=== PATIENT | male | born 1970 | race Caucasian/White ===

== ENCOUNTER 2020-11-27 04:11 | Observation (INO) | payer MEDICAID, OTHER ==
[~2020-11-27] VITALS: Ht 188 cm; Wt 121.5 kg
--- NOTE | 2020-11-27 04:18 | NUR ---
BIB [facility]-PT HAS CHRONIC COUGH, BUT EARLIER THIS MORNING DURING COUGHING HE FELT A SNAP AND HAD INCREASED PAIN. BEHAVIORAL HEALTH TECH 18G PIV INSERTED, 200 MCG FENTANYL ADMINSTERED. ASSUMED CARE OF PT. HOOKED TO MONITORS, NADN. PRECIOUS MACIAS CURRENTLY BEDSIDE ASSESSING PT
--- NOTE | 2020-11-27 04:29 | NUR ---
PT UPDATED ON POC, PT PROVIDED URINE SAMPLE, COLLECTED AND SENT TO LAB. NADN, CALL LIGHT W/ IN REACH
--- NOTE | 2020-11-27 04:36 | NUR ---
MAIL ROOM BEDSIDE W/ PT FOR XRAY
[2020-11-27 04:50] LABS: MICROSCOPIC NOT IND
[2020-11-27 05:00] LABS: BASOPHILS % (AUTO) 1 % (0-1); EOSINOPHILS % (AUTO) 8 % (1-7); LYMPHOCYTES % (AUTO) 17 % (22-44); MEAN CORPUSCULAR HEMOGLOBIN 29.9 pg (27.5-34.5); MEAN CORPUSCULAR HGB CONC 33.9 g/dL (33.2-36.2); MEAN PLATELET VOLUME 8.3 fL (7.4-10.4); MONOCYTES % (AUTO) 8 % (2-9); NEUTROPHILS % (AUTO) 66 % (42-75); PLATELET COUNT 297 x10^3/uL (130-400); RED BLOOD COUNT 5.06 x10^6/uL (4.38-5.82); RED CELL DISTRIBUTION WIDTH 13.4 % (9.4-14.8)
[2020-11-27] MEDS ORDERED: ONDANSETRON 2MG/ML, 2ML IVPush ONE (05:00)
[2020-11-27] MEDS ORDERED: MORPHINE SULFATE 4 MG/ML, 1ML ONE ×2 (05:01→05:47)
[2020-11-27] MEDS ORDERED: ONDANSETRON 2MG/ML, 2ML ONE (05:01)
[2020-11-27] MEDS: MORPHINE SULFATE 4 MG/ML, 1ML IVPush PRN ×2 (05:05→05:50)
--- NOTE | 2020-11-27 05:09 | NUR ---
PT SITTING ON EDGE OF PAIN, IT HURTS TO SIT IN GURNEY. PT MEDICATED PER AUG HE REPORTS 12 PAIN. NADN, REGULAR/UNLABORED RESPIRATION. CALL LIGHT W/IN REACH.
[2020-11-27 05:10] LABS: ALANINE AMINOTRANSFERASE 46 U/L (12-78); ALBUMIN 3.3 g/dL (3.4-5.0); ANION GAP 4 mmol/L (5-15); CALCIUM 8.4 mg/dL (8.5-10.1); CHLORIDE 109 mmol/L (98-107); CREATININE 1.28 mg/dL (0.7-1.3)
[2020-11-27 05:14] LABS: ALKALINE PHOSPHATASE 75 U/L (45-117); BILIRUBIN,TOTAL 0.2 mg/dL (0.2-1.0); TOTAL PROTEIN 7.2 g/dL (6.4-8.2); TROPONIN I < 0.015 ng/mL (0.000-0.045)
[2020-11-27 05:21] LABS: BILIRUBIN, DIRECT < 0.1 mg/dL (0.1-0.2); BILIRUBIN,INDIRECT 0.1 mg/dL (0.0-2.0)
--- NOTE | 2020-11-27 05:29 | NUR ---
PRESENT TO UPDATE PT ON POC. CT WILL RETURN AFTER PT IS MEDICATED. CALL LIGHT W/IN REACH.
--- NOTE | 2020-11-27 05:37 | NUR ---
PT TO CT
--- NOTE | 2020-11-27 05:59 | NUR ---
PT RETURNED FROM CT, HOOKED PT BACK UP TO MONITORS AND OXYGEN (87% RA). SECOND PIV STARTED. NADN, CALL LIGHT W/IN REACH.
[2020-11-27] MEDS ORDERED: OMNIPAQUE 350 MG/ML, 100ML BOTTLE ONE (06:02)
--- NOTE | 2020-11-27 06:56 | NUR ---
SBAR REPORT GIVEN TO KWAKU. NOTIFIED HER PT REPORTS HE IS STILL IN PAIN AND REQUESTING PAIN MEDICATION WHICH WAS COMMUNICATED ON BOARD FOR .
--- NOTE | 2020-11-27 07:32 | NUR ---
PT DESATING TO 84% ON RA. PT PLACED ON 4L N/C, PT NOW SATING 92%.
[2020-11-27 08:08] VITALS: BP 137/95
[2020-11-27] MEDS ORDERED: ZOLP10TA PO (08:19)
[2020-11-27] MEDS ORDERED: CITA10TA8 PO (08:19)
[2020-11-27] MEDS ORDERED: OXYC-380 PO (08:19)
--- NOTE | 2020-11-27 08:30 | NUR ---
PT HAS REMOVED ALL MONITORS AND IS AMBULATING STEADILY TO BATHROOM.
--- NOTE | 2020-11-27 08:57 | NUR ---
PT SIGNED OUT AMA. PT WAS REQUESTING TO TALK TO THE DOCTOR TO GET AN INHALER HE CAN TAKE AT HOME. SPOKE WITH ERP, STATED IF PT IS STILL DESATING ON RA, AN INHALER WILL NOT HELP AND ADMISSION IS BEST. WENT IN TO CHECK PT SAT, PT REFUSED TO ALLOW THIS RN TO PUT O2 SAT ON. PT STATED I HAVE BEEN WAITING 3 HOURS FOR PAIN MEDS AND NO ONE HAS GIVEN ME ANYTHING SO I WANT TO LEAVE. THERE WERE NO NEW ORDERS FOR MEDS, THIS RN WENT TO SPEAK WITH ERP. ERP MADE AWARE PT WANTING TO LEAVE AMA. AMA FORM EXPLAINED TO PT, PT SIGNED. BILAT IVs REMOVED. PT WALKED OUT OF ED.
== END 2020-11-27 09:02 | disposition home or self-care (01) ==
LOC: ED 05:11 → UNDOADMIN 08:51 → EDIP 08:51 → ED 08:56 → EDIP 08:56 → 3N 08:59 → EDIP 08:59 → ED 09:02 → UNDODISIN 09:15
PROVIDERS: ADMIT Emergency Medicine; ATTEND Emergency Medicine
DX: R07.89 Other chest pain (principal); R10.9 Unspecified abdominal pain; R09.02 Hypoxemia; F17.200 Nicotine dependence, unspecified, uncomplicated
CPT/HCPCS: 36415; 71045; 71275; 74176; 80048; 80076; 81003; 82040; 83690; 84484; 85025; 85379; 93005; 96374; 96375; 96376; 99285; G0378; J2270; J2405; Q9967